=== PATIENT | male | born 1960 | race Caucasian/White ===

== ENCOUNTER 2024-03-22 20:10 | Emergency (ER) | payer SELFPAY ==
[~2024-03-22] VITALS: Ht 162.6 cm; Wt 70.0 kg
[2024-03-22] VITALS (17 sets, daily range): BP systolic 83–126; BP diastolic 37–60
[2024-03-22] MEDS ORDERED: oxyCODONE 10MG/APAP 325 MG 1 COMBO TAB PO ONE (20:40)
[2024-03-22] MEDS ORDERED: SODIUM CHLORIDE 0.9% 500 ML IV ONE (20:40)
[2024-03-22 21:23] LABS: INTERNATIONAL NORMALIZED RATIO 1.2 RATIO (0.7-1.3)
[2024-03-22 21:26] LABS: ALBUMIN 3.8 g/dL (3.2-5.0); BILIRUBIN, TOTAL 0.7 mg/dL (0.2-1.3); CREATININE 0.9 mg/dL (0.7-1.3); POTASSIUM 3.9 mmol/l (3.5-5.1); TOTAL PROTEIN 7.2 g/dL (6.3-8.2)
[2024-03-22 21:27] LABS: PROTHROMBIN TIME 10.9 SECONDS (9.0-12.5)
[2024-03-22 21:40] LABS: BASO% 0.9 % (0-3); EOS% 0.9 % (0-8); LYMPH% 54.3 % (15-41); MEAN CELL VOLUME 94.6 fL CALC (80.0-100.0); MEAN CORPUSCULAR HGB 31.8 pG CALC (26.0-32.0); MEAN CORPUSCULAR HGB CONC 33.6 g/dL CAL (32.0-36.0); MONO% 8.6 % (2-13); NEUT# 0.41 thou/uL (1.82-7.42); NEUT% 35.3 % (42-76); RED BLOOD COUNT 1.48 mill/uL (4.70-6.10); RED CELL DISTRI WIDTH 15.7 % (11.5-15.5)
[2024-03-22 21:41] LABS: HEMOGLOBIN 4.7 g/dl (14.0-18.0)
[2024-03-22 22:35] LABS: URINE BILIRUBIN - DIPSTICK Negative (NEGATIVE); URINE BLOOD DIPSTICK Trace-intact (NEGATIVE); URINE GLUCOSE - DIPSTICK Negative (NEGATIVE); URINE KETONE Negative (NEGATIVE); URINE LEUK ESTERASE Negative (NEGATIVE); URINE NITRITE - DIPSTICK Negative (Negative); URINE PH 5.5 (4.5-8.0); URINE PROTEIN - DIPSTICK Negative (NEG-TRACE); URINE UROBILINOGEN - DIPSTICK 0.2 E.U./dL (0.2)
[2024-03-22 22:38] LABS: URINE COLOR Yellow
== END 2024-03-22 23:20 | disposition short-term general hospital (02) | DRG 836 ==
LOC: ED 20:10
PROVIDERS: Emergency Medicine
PROC: 30233N1 Transfusion of Nonautologous Red Blood Cells into Peripheral Vein, Percutaneous Approach (ICD-10-PCS; principal; 2024-03-22)
DX: C92.00 Acute myeloblastic leukemia, not having achieved remission (principal); D69.6 Thrombocytopenia, unspecified; J44.9 Chronic obstructive pulmonary disease, unspecified; F17.210 Nicotine dependence, cigarettes, uncomplicated; Z86.73 Personal history of transient ischemic attack (TIA), and cerebral infarction without residual deficits
CPT/HCPCS: P9016